=== PATIENT | female | born 1960 | race Caucasian/White ===

== ENCOUNTER 2018-06-07 17:38 | Emergency (ER) | payer MEDICAID ==
[~2018-06-07] VITALS: Ht 157.5 cm; Wt 102.3 kg
[~2018-06-07 17:38] MED LIST: GLIP10 PO; METF-960 PO; SERT100T12 PO; SIMV-261 PO
[2018-06-07 18:01] VITALS: BP 126/86
[2018-06-07 18:14] LABS: GLUCOSE,POINT OF CARE 211 MG/DL (70-110)
== END 2018-06-07 21:00 | disposition left against medical advice (07) ==
LOC: EMS 17:47
DX: R05 Cough (principal); E11.9 Type 2 diabetes mellitus without complications; F32.9 Major depressive disorder, single episode, unspecified; F17.210 Nicotine dependence, cigarettes, uncomplicated; Z53.21 Procedure and treatment not carried out due to patient leaving prior to being seen by health care provider

== ENCOUNTER 2020-02-13 08:44 | Emergency (ER) | payer MEDICAID ==
[~2020-02-13] VITALS: Ht 157.5 cm; Wt 93.2 kg
[2020-02-13] MEDS ORDERED: METF-960 PO (08:56)
[2020-02-13] MEDS ORDERED: INSU100I26 SQ (08:57)
[2020-02-13] MEDS ORDERED: DICY10 PO (08:57)
[2020-02-13] MEDS ORDERED: DULA0.75 SQ (08:57)
[2020-02-13] MEDS ORDERED: CYCLOBENZAPRINE HCL 10 MG TABLET PO ONE (09:15)
[2020-02-13 09:59] VITALS: BP 129/76
== END 2020-02-13 10:01 | disposition home or self-care (01) ==
LOC: EMS 08:46
DX: M54.41 Lumbago with sciatica, right side (principal); F17.210 Nicotine dependence, cigarettes, uncomplicated; F32.9 Major depressive disorder, single episode, unspecified; E11.9 Type 2 diabetes mellitus without complications

== ENCOUNTER 2023-03-20 17:42 | Inpatient (IN) | payer MEDICAID ==
[~2023-03-20] VITALS: Ht 157.5 cm; Wt 96.5 kg
[~2023-03-20 17:42] MED LIST changes: +DICY-1 PO; +DULA0.75 SQ; -GLIP10 PO; +INSU100I26 SQ; +METF-1211 PO; -METF-960 PO; +SERT-162 PO; -SERT100T12 PO
[2023-03-20 18:16] LABS: GLUCOMETER DEV NAME(LOC) ERT.5; GLUCOSE,POINT OF CARE 226 MG/DL (70-110)
[2023-03-20] MEDS ORDERED: IOHEXOL 9 MG/ML 500 ML BOTTLE PO ONE (20:30)
[2023-03-20] MEDS ORDERED: ONDANSETRON HCL 4 MG/2 ML VIAL IVP ONE (20:30)
[2023-03-20] MEDS ORDERED: SODIUM CHLORIDE 0.9% 1,000 ML IV ONE (20:30)
[2023-03-20] MEDS ORDERED: MORPHINE SULFATE 4 MG/ML SYRINGE IVP ONE (20:30)
[2023-03-20 20:49] LABS: BASOPHILS % (AUTO) 0.4 % (0.0-2.0); EOSINOPHILS % (AUTO) 1.3 % (1.0-6.0); HEMATOCRIT 38.4 % (36-46); HEMOGLOBIN 12.2 g/dL (12.0-16.0); LYMPHOCYTES # (AUTO) 1.8 K/uL (1.0-4.8); MEAN CORPUSCULAR HGB CONC 31.8 G/dL (31.0-37.0); MEAN CORPUSCULAR VOLUME 79 fL (80-100); MONOCYTES # (AUTO) 0.7 K/uL (0.1-1.0); MONOCYTES % (AUTO) 5.5 % (2.0-9.0); NEUTROPHILS # (AUTO) 9.3 K/uL (1.8-7.7); NEUTROPHILS % (AUTO) 77.8 % (40.0-70.0); PLATELET COUNT (AUTO) 210 K/uL (150-450); RED BLOOD CELL COUNT(AUTO) 4.88 MIL/uL (4.00-5.20); RED CELL DISTRIBUTION WIDTH 15.5 % (11.5-14.5)
[2023-03-20 20:58] LABS: ANION GAP 12 mmol/L (8-16); CALCIUM, TOTAL 8.8 mg/dL (8.8-10.5); CARBON DIOXIDE 25 mmol/L (22-29); CHLORIDE 103 mmol/L (98-107); CREATININE 0.93 mg/dL (0.60-1.30); GLOMERULAR FILTR. RATE CALC > 60 mL/min (>60); GLUCOSE,RANDOM 144 mg/dL (70-110); SODIUM SERUM 140 mmol/L (136-145); UREA NITROGEN, BLOOD 16 mg/dL (7-18)
[2023-03-20 21:06] LABS: LACTIC ACID 1.1 mmol/L (0.4-2.0)
[2023-03-20 21:08] LABS: TROPONIN I-HIGH SENSITIVITY 4 ng/L (<51)
[2023-03-20 21:12] LABS: ALANINE AMINOTRANSFERASE 25 U/L (12-78); ALBUMIN 3.8 g/dL (3.4-5.0); ALKALINE PHOSPHATASE 110 U/L (46-116); ASPARTATE AMINOTRANSFERASE 26 U/L (15-37); BILIRUBIN,TOTAL 0.3 mg/dL (0.1-1.0); LIPASE 38 U/L (16-77); TOTAL PROTEIN, SERUM 7.7 g/dL (6.4-8.2)
[2023-03-20] MEDS ORDERED: IOHEXOL 350 MG/ML 100 ML VIAL ONE (22:53)
[2023-03-20] MEDS ORDERED: SODIUM CHLORIDE 0.9% 100 ML ONE (22:54)
[2023-03-20 23:29] LABS: APPEARANCE,URINE CLEAR (CLEAR); BILIRUBIN,URINE NEGATIVE (NEGATIVE); COLOR,URINE LIGHT YELLOW (YELLOW); GLUCOSE, URINE (UA) NEGATIVE (NEGATIVE); KETONES,URINE NEGATIVE (NEGATIVE); LEUKOCYTE ESTERASE ,URINE NEGATIVE (NEGATIVE); NITRATE,URINE POSITIVE (NEGATIVE); OCCULT BLOOD,URINE NEGATIVE (NEGATIVE); PH,URINE 5.5 (5.0-8.0); PROTEIN,URINE NEGATIVE (NEGATIVE); UROBILINOGEN,URINE <=1.0 mg/dL (<=1.0)
[2023-03-20 23:39] LABS: BACTERIA,URINE Moderate /HPF (None Seen); RBC,URINE None Seen /HPF (0-2); SQUAMOUS EPITHELIAL CELL,UR Rare /LPF (None Seen); WBC,URINE None Seen /HPF (0-5)
[2023-03-21] MEDS ORDERED: ACETAMINOPHEN 325 MG TABLET PO PRN (00:30)
[2023-03-21] MEDS ORDERED: ONDANSETRON HCL 4 MG/2 ML VIAL IVP PRN ×2 (00:30→07:45)
[2023-03-21] MEDS ORDERED: PIPERACILLIN/TAZO 3.375 GM/D5W 50 ML IV ONE (00:30)
[2023-03-21] MEDS ORDERED: 0.9% SODIUM CHLORIDE 10 ML SYRINGE IVP PRN (00:30)
[2023-03-21] MEDS ORDERED: HYDROmorphone HCL 2 MG/ML SYRINGE IVP ONE (01:45)
[2023-03-21 02:12] LABS: COVID AG,FIA SOURCE NASAL SWAB
[2023-03-21 02:30] LABS: SARS-COV2 (COVID) ANTIGEN,FIA Negative (Negative)
[2023-03-21 03:00] VITALS: BP 128/63; PULSE 88; RESP 20; TEMP 98.4
[2023-03-21] MEDS ORDERED: DEXTROSE 50%-WATER 25 GM/50 ML SYRINGE IVP PRN (07:15)
[2023-03-21] MEDS: INSULIN LISPRO 100 UNITS/ML SQ PRN ×3 (07:21→21:01)
[2023-03-21 07:41] LABS: GLUCOMETER DEV NAME(LOC) 6S.2; GLUCOSE,POINT OF CARE 209 MG/DL (70-110)
[2023-03-21] MEDS ORDERED: ZOLPIDEM TARTRATE 5 MG TABLET PO PRN (07:45)
[2023-03-21] MEDS ORDERED: HYDROCODONE/ACETAMINOPHEN 5-325 MG TABLET PO PRN (07:45)
[2023-03-21] MEDS ORDERED: MORPHINE SULFATE 2 MG/ML SYRINGE IVP PRN (07:45)
[2023-03-21] MEDS ORDERED: BISACODYL 10 MG RECTAL RECTAL SUPPOSITORY PR PRN (07:45)
[2023-03-21] MEDS ORDERED: SODIUM CHLORIDE 0.9% 500 ML IV ONE (08:50)
[2023-03-21] MEDS: DICYCLOMINE HCL 10 MG CAPSULE PO SCH (08:53)
[2023-03-21] MEDS: HEPARIN SODIUM,PORCINE 5,000 UNITS/ML VIAL SQ SCH ×2 (08:53→15:59)
[2023-03-21] MEDS: PANTOPRAZOLE SODIUM 40 MG DR TABLET PO SCH (08:54)
[2023-03-21] MEDS: DOCUSATE SODIUM 100 MG CAPSULE PO SCH ×2 (08:54→20:55)
[2023-03-21] MEDS: PIPERACILLIN/TAZO 3.375 GM/D5W 50 ML IV SCH ×3 (08:55→21:01)
[2023-03-21] MEDS: ACETAMINOPHEN 325 MG TABLET PO PRN ×2 (09:09→21:04)
[2023-03-21 10:19] VITALS: BP 120/79; PULSE 74; RESP 20; TEMP 98.3
[2023-03-21 13:01] LABS: GLUCOMETER DEV NAME(LOC) 6N.2B; GLUCOSE,POINT OF CARE 184 MG/DL (70-110)
[2023-03-21 17:07] VITALS: BP 108/62; PULSE 70; RESP 20; TEMP 98.4
[2023-03-21 18:56] LABS: GLUCOMETER DEV NAME(LOC) 6N.2B; GLUCOSE,POINT OF CARE 114 MG/DL (70-110)
[2023-03-21 20:43] VITALS: BP 122/64; PULSE 74; RESP 20; TEMP 98.2
[2023-03-21] MEDS: SIMVASTATIN 40 MG TABLET PO SCH (20:55)
[2023-03-21] MEDS: MAGNESIUM HYDROXIDE SUSPENSION 30 ML UDCUP PO PRN (20:59)
[2023-03-22] MEDS: HEPARIN SODIUM,PORCINE 5,000 UNITS/ML VIAL SQ SCH ×4 (00:08→23:18)
[2023-03-22 01:56] LABS: GLUCOMETER DEV NAME(LOC) 6N.2B; GLUCOSE,POINT OF CARE 171 MG/DL (70-110)
[2023-03-22] MEDS: PIPERACILLIN/TAZO 3.375 GM/D5W 50 ML IV SCH ×4 (02:30→20:31)
[2023-03-22 04:23] VITALS: BP 131/70; PULSE 78; RESP 20; TEMP 97.9
[2023-03-22] MEDS: INSULIN LISPRO 100 UNITS/ML SQ PRN ×3 (06:13→18:06)
[2023-03-22 07:43] LABS: CALCIUM, TOTAL 8.8 mg/dL (8.8-10.5); CARBON DIOXIDE 26 mmol/L (22-29); CHLORIDE 161 mmol/L (98-107); CREATININE 0.91 mg/dL (0.60-1.30); GLOMERULAR FILTR. RATE CALC > 60 mL/min (>60); GLUCOSE,RANDOM 165 mg/dL (70-110); POTASSIUM 4.3 mmol/L (3.5-5.1); UREA NITROGEN, BLOOD 9 mg/dL (7-18)
[2023-03-22 07:53] LABS: ANION GAP 8 mmol/L (8-16); SODIUM SERUM 139 mmol/L (136-145)
[2023-03-22 08:07] VITALS: BP 120/70; PULSE 73; RESP 19; TEMP 98.4
[2023-03-22] MEDS: DICYCLOMINE HCL 10 MG CAPSULE PO SCH (08:15)
[2023-03-22] MEDS: PANTOPRAZOLE SODIUM 40 MG DR TABLET PO SCH (08:15)
[2023-03-22] MEDS: DOCUSATE SODIUM 100 MG CAPSULE PO SCH ×2 (08:16→20:25)
[2023-03-22 08:37] LABS: BASOPHILS % (AUTO) 0.5 % (0.0-2.0); EOSINOPHILS % (AUTO) 2.4 % (1.0-6.0); HEMATOCRIT 33.5 % (36-46); HEMOGLOBIN 11.2 g/dL (12.0-16.0); LYMPHOCYTES # (AUTO) 1.5 K/uL (1.0-4.8); LYMPHOCYTES % (AUTO) 25.5 % (22.0-44.0); MEAN CORPUSCULAR HGB CONC 33.3 G/dL (31.0-37.0); MEAN CORPUSCULAR VOLUME 78 fL (80-100); MONOCYTES # (AUTO) 0.3 K/uL (0.1-1.0); MONOCYTES % (AUTO) 5.8 % (2.0-9.0); NEUTROPHILS % (AUTO) 65.8 % (40.0-70.0); PLATELET COUNT (AUTO) 184 K/uL (150-450); RED BLOOD CELL COUNT(AUTO) 4.29 MIL/uL (4.00-5.20); RED CELL DISTRIBUTION WIDTH 15.2 % (11.5-14.5)
[2023-03-22] MEDS: MAGNESIUM HYDROXIDE SUSPENSION 30 ML UDCUP PO PRN (08:49)
[2023-03-22] MEDS ORDERED: MINERAL OIL 133 ML ENEMA PR ONE (11:30)
[2023-03-22 12:46] LABS: GLUCOMETER DEV NAME(LOC) 4E.2; GLUCOSE,POINT OF CARE 155 MG/DL (70-110)
[2023-03-22 12:46] LABS: GLUCOMETER DEV NAME(LOC) 4E.2; GLUCOSE,POINT OF CARE 177 MG/DL (70-110)
[2023-03-22 16:08] VITALS: BP 108/56; PULSE 74; RESP 19; TEMP 98.2
[2023-03-22] MEDS: SIMVASTATIN 40 MG TABLET PO SCH (20:25)
[2023-03-22 20:37] VITALS: BP 130/72; PULSE 78; RESP 18; TEMP 99
[2023-03-23] MEDS: PIPERACILLIN/TAZO 3.375 GM/D5W 50 ML IV SCH ×2 (01:23→08:37)
[2023-03-23 01:51] LABS: GLUCOMETER DEV NAME(LOC) 6S.2; GLUCOSE,POINT OF CARE 122 MG/DL (70-110)
[2023-03-23 01:51] LABS: GLUCOMETER DEV NAME(LOC) 6S.2; GLUCOSE,POINT OF CARE 208 MG/DL (70-110)
[2023-03-23 03:07] LABS: HEPATITIS C AB (EIA) Non Reactive (Non Reactive)
[2023-03-23 05:01] VITALS: BP 120/58; PULSE 69; RESP 18; TEMP 97.7
[2023-03-23 06:56] LABS: BASOPHILS % (AUTO) 0.3 % (0.0-2.0); EOSINOPHILS % (AUTO) 2.4 % (1.0-6.0); HEMATOCRIT 34.4 % (36-46); HEMOGLOBIN 11.4 g/dL (12.0-16.0); LYMPHOCYTES # (AUTO) 2.1 K/uL (1.0-4.8); LYMPHOCYTES % (AUTO) 33.7 % (22.0-44.0); MEAN CORPUSCULAR HEMOGLOBIN 25.9 pg (26.0-34.0); MEAN CORPUSCULAR HGB CONC 33.2 G/dL (31.0-37.0); MEAN CORPUSCULAR VOLUME 78 fL (80-100); MONOCYTES # (AUTO) 0.4 K/uL (0.1-1.0); MONOCYTES % (AUTO) 6.1 % (2.0-9.0); NEUTROPHILS # (AUTO) 3.6 K/uL (1.8-7.7); NEUTROPHILS % (AUTO) 57.5 % (40.0-70.0); PLATELET COUNT (AUTO) 203 K/uL (150-450); RED CELL DISTRIBUTION WIDTH 15.3 % (11.5-14.5); WHITE BLOOD COUNT (AUTO) 6.2 K/uL (4.5-11.0)
[2023-03-23 07:07] LABS: CREATININE 1.13 mg/dL (0.60-1.30); POTASSIUM 4.1 mmol/L (3.5-5.1)
[2023-03-23] MEDS: DOCUSATE SODIUM 100 MG CAPSULE PO SCH (08:37)
[2023-03-23] MEDS: PANTOPRAZOLE SODIUM 40 MG DR TABLET PO SCH (08:37)
[2023-03-23] MEDS: DICYCLOMINE HCL 10 MG CAPSULE PO SCH (08:37)
[2023-03-23] MEDS: HEPARIN SODIUM,PORCINE 5,000 UNITS/ML VIAL SQ SCH (08:37)
[2023-03-23 08:38] VITALS: BP 114/78; PULSE 72; RESP 19; TEMP 97.1
[2023-03-23] MEDS ORDERED: AMOX1TAB15 PO (10:39)
[2023-03-23] MEDS ORDERED: POLY17PO47 PO (10:39)
[2023-03-23] MEDS: INSULIN LISPRO 100 UNITS/ML SQ PRN (11:29)
[2023-03-23 12:11] LABS: GLUCOMETER DEV NAME(LOC) 6N.2B; GLUCOSE,POINT OF CARE 136 MG/DL (70-110)
[2023-03-23 12:16] LABS: GLUCOMETER DEV NAME(LOC) 4E.2; GLUCOSE,POINT OF CARE 165 MG/DL (70-110)
== END 2023-03-23 14:14 | disposition home or self-care (01) | DRG 244 ==
LOC: EMS 18:18 → 6S 03-21 02:52
PROVIDERS: ADMIT Internal Medicine; ATTEND Internal Medicine
DX: K57.32 Diverticulitis of large intestine without perforation or abscess without bleeding (principal); E11.9 Type 2 diabetes mellitus without complications; N39.0 Urinary tract infection, site not specified; E78.5 Hyperlipidemia, unspecified; Z20.822 Contact with and (suspected) exposure to COVID-19; I10 Essential (primary) hypertension; K58.9 Irritable bowel syndrome, unspecified; Z88.8 Allergy status to other drugs, medicaments and biological substances; Z87.891 Personal history of nicotine dependence
CPT/HCPCS: 71045; 74019; 74177; 80048; 80053; 81001; 82962; 83605; 83690; 84484; 85025; 86803; 87086; 87186; 87340; 93005; 99285; J1170; J1644; J2270; J2405; J2543; J7030; J7040; J7050; Q9967; 36415-L1; 36415-TC

== ENCOUNTER 2023-12-05 10:17 | Emergency (ER) | payer MEDICAID ==
[~2023-12-05] VITALS: Ht 157.5 cm; Wt 91.8 kg
[~2023-12-05 10:17] MED LIST changes: +AMOX1TAB15 PO; +POLY17PO47 PO
[2023-12-05 10:31] VITALS: BP 96/48; PULSE 116; RESP 20; TEMP 98.3; O2SAT 100
[2023-12-05 11:05] LABS: COVID AG,FIA SOURCE NASAL SWAB
[2023-12-05 11:55] LABS: INFLUENZA TYPE A NEGATIVE FOR TYPE A (NEGATIVE); INFLUENZA TYPE B NEGATIVE FOR TYPE B (NEGATIVE); SARS-COV2 (COVID) ANTIGEN,FIA Negative (Negative)
[2023-12-05] MEDS ORDERED: NICO-703 TD (13:03)
== END 2023-12-05 13:09 | disposition home or self-care (01) ==
LOC: EMS 10:17
DX: J06.9 Acute upper respiratory infection, unspecified (principal); R05.9 Cough, unspecified; F17.210 Nicotine dependence, cigarettes, uncomplicated; M79.10 Myalgia, unspecified site; E11.9 Type 2 diabetes mellitus without complications; Z88.8 Allergy status to other drugs, medicaments and biological substances; Z71.6 Tobacco abuse counseling; Z79.4 Long term (current) use of insulin; Z20.822 Contact with and (suspected) exposure to COVID-19
CPT/HCPCS: 87804; 99283; 99406

== ENCOUNTER 2024-07-21 09:42 | Emergency (ER) | payer MEDICAID ==
[~2024-07-21] VITALS: Ht 157.5 cm; Wt 90.9 kg
[~2024-07-21 09:42] MED LIST changes: +NICO-703 TD
[2024-07-21 09:45] VITALS: TEMP 98.2
[2024-07-21] MEDS ORDERED: SEMA0.258 SQ (09:51)
[2024-07-21] MEDS ORDERED: ASPI-1227 PO (09:51)
[2024-07-21] MEDS ORDERED: INSU100I26 SQ (09:51)
[2024-07-21 10:06] LABS: GLUCOMETER DEV NAME(LOC) ER.7; GLUCOSE,POINT OF CARE 130 MG/DL (70-110)
[2024-07-21] MEDS ORDERED: NAPR-1196 PO (10:43)
[2024-07-21] MEDS ORDERED: CYCL-448 PO (10:43)
[2024-07-21 11:00] VITALS: BP 129/68; PULSE 80; RESP 18; O2SAT 98
== END 2024-07-21 11:15 | disposition home or self-care (01) ==
LOC: EMS 09:44
DX: M54.50 Low back pain, unspecified (principal); K58.9 Irritable bowel syndrome, unspecified; E11.9 Type 2 diabetes mellitus without complications; F32.A Depression, unspecified; F17.210 Nicotine dependence, cigarettes, uncomplicated; Z88.8 Allergy status to other drugs, medicaments and biological substances; Z79.4 Long term (current) use of insulin; Z79.82 Long term (current) use of aspirin; Z79.899 Other long term (current) drug therapy
CPT/HCPCS: 82962; 99283